=== PATIENT | female | born 1960 | race Caucasian/White ===

== ENCOUNTER 2017-01-25 06:43 | Day surgery (SDC) | payer BC ==
[2017-01-25] MEDS ORDERED: Sodium Chloride 0.9% 10 ML Syringe FLUSH PRN (06:45)
[2017-01-25] MEDS ORDERED: Lactated Ringers 1,000 ML IV SCH (06:45)
[2017-01-25] MEDS ORDERED: Propofol 200 MG/20 ML SDV IV ONE (08:00)
--- NOTE | 2017-01-25 08:20 | PCM.OPNOTE ---
- General Post-Op/Procedure Note Date of Surgery/Procedure: 01/25/17 Operative Procedure(s): c scope Findings: normal colonoscopy Pre Op Diagnosis: hx of colon polyps Post-Op Diagnosis: nl scope Anesthesia Technique: MAC Primary Surgeon: Sameer Conley Anesthesia Provider: Joaquín Glass Pathology: none Complications: None Condition: Good Free Text/Narrative:: see dictation
[2017-01-25 09:37] VITALS: BP 121/83
--- NOTE | 2017-01-25 12:27 | OR ---
DATE OF OPERATION: 01/25/2017 SURGEON: Sameer Conley MD PROCEDURE PERFORMED: Screening colonoscopy. PREOPERATIVE DIAGNOSIS: Personal history of colon polyps. POSTOPERATIVE DIAGNOSIS: Normal scope. INDICATIONS FOR PROCEDURE: This is a 56-year-old white female, who has a history of colon polyps on her previous endoscopy. She presents now for followup scope. DESCRIPTION OF PROCEDURE: After an excellent IV sedation was administered, digital rectal exam was performed. No marked abnormality was noted. The flexible colonoscope was inserted and advanced to the cecum without difficulty. The prep was excellent. The following findings were noted. Ascending colon, unremarkable. Transverse colon, unremarkable. Descending colon, unremarkable. Sigmoid and rectum unremarkable. Colon was deflated. Scope was removed. The patient tolerated the procedure well and was taken to recovery room in good condition. /[id number] /MAYEL
== END 2017-01-25 09:10 | disposition home or self-care (01) ==
LOC: FB.SDS 06:43
PROVIDERS: ATTEND Surgery
DX: Z12.11 Encounter for screening for malignant neoplasm of colon (principal); I73.00 Raynaud's syndrome without gangrene; I10 Essential (primary) hypertension; G43.909 Migraine, unspecified, not intractable, without status migrainosus; I05.9 Rheumatic mitral valve disease, unspecified; Z87.19 Personal history of other diseases of the digestive system; Z90.49 Acquired absence of other specified parts of digestive tract; Z98.890 Other specified postprocedural states; Z79.899 Other long term (current) drug therapy
CPT/HCPCS: 45378; J2704; J7120

== ENCOUNTER 2017-08-01 20:11 | Emergency (ER) | payer BC ==
[2017-08-01] MEDS ORDERED: Bupivacaine 0.5% 30 ML SDV INFILT ONE (20:12)
[2017-08-01] MEDS ORDERED: Diphtheria,Pertussis(Acell),Tetanus Vaccine 0.5 ML SDV IM ONE (20:18)
[2017-08-01] MEDS ORDERED: Amoxicillin/Clavulanate K 875-125 MG Tab PO ONE (20:51)
--- NOTE | 2017-08-01 20:51 | EDM.PDOC ---
ED HPI GENERAL MEDICAL PROBLEM - General Chief Complaint: Laceration Stated Complaint: POINTER LT FINGER LAC Time Seen by Provider: 08/01/17 20:11 Source of Information: Reports: Patient, Family History Limitations: Reports: No Limitations - History of Present Illness INITIAL COMMENTS - FREE TEXT/NARRATIVE: 57 y.o.w.sofia came to the ed with her SO after she cut herself with a kitchen knife into her left index finger by accident. There was mild bleeding, No loss of function with good bending, extension abduction and adduction. No other acute medical issues. BP 162/102 pulse 80 Temp 36.7 RR 19 Pulse ox 98% on RA Onset: Today Onset Date: 08/01/17 Onset Time: 20:00 Duration: Minutes:, Constant Location: Reports: Upper Extremity, Left Quality: Reports: Ache, Burning Severity: Mild Improves with: Reports: Rest Worsens with: Reports: Movement Context: Reports: Trauma (with kitchen knife) Associated Symptoms: Reports: No Other Symptoms - Related Data Allergies Allergy/AdvReac Type Severity Reaction Status Date / Time No Known Allergies Allergy Verified 08/01/17 20:35 Home Meds: Home Meds Lisinopril 20 mg PO DAILY 01/24/17 [History] PARoxetine [Paxil] 10 mg PO DAILY 01/24/17 [History] Amoxicillin/Potassium Clav [Augmentin 875-125 Tablet] 1 each PO BID #20 tablet 08/01/17 [Rx] Past Medical History HEENT History: Reports: None Cardiovascular History: Reports: Hypertension, Other (See Below) Other Cardiovascular History: MITRAL VALVE DISORDER, RAYNAUD'S SYNDROME Respiratory History: Reports: None Gastrointestinal History: Reports: Colon Polyp, Hemorrhoids Genitourinary History: Reports: Other (See Below) Other Genitourinary History: MENOPAUSAL X 2.5 YEARS HCC CODERS History: Reports: Musculoskeletal History: Reports: None Neurological History: Reports: Migraines Psychiatric History: Reports: Anxiety Endocrine/Metabolic History: Reports: None Hematologic History: Reports: None Oncologic (Cancer) History: Reports: None Dermatologic History: Reports: None - Past Surgical History Head Surgeries/Procedures: Reports: None HEENT Surgical History: Reports: Adenoidectomy, Tonsillectomy Cardiovascular Surgical History: Reports: None Respiratory Surgical History: Reports: None GI Surgical History: Reports: Appendectomy, Colonoscopy Female Surgical History: Reports: Section Endocrine Surgical History: Reports: None Neurological Surgical History: Reports: None Musculoskeletal Surgical History: Reports: None Oncologic Surgical History: Reports: None Social & Family History - Tobacco Use Smoking Status *Q: Never Smoker - Caffeine Use Caffeine Use: Reports: Soda - Alcohol Use Days Per Week of Alcohol Use: 3 Number of Drinks Per Day: 3 Total Drinks Per Week: 9 - Recreational Drug Use Recreational Drug Use: No - Living Situation & Occupation Living situation: Reports: ED ROS GENERAL - Review of Systems Review Of Systems: See Below Constitutional: Reports: No Symptoms HEENT: Reports: No Symptoms Respiratory: Reports: No Symptoms Cardiovascular: Reports: No Symptoms Endocrine: Reports: No Symptoms GI/Abdominal: Reports: No Symptoms : Reports: No Symptoms Musculoskeletal: Reports: No Symptoms Skin: Reports: Wound (left index finger) Neurological: Reports: No Symptoms Psychiatric: Reports: No Symptoms Hematologic/Lymphatic: Reports: No Symptoms Immunologic: Reports: No Symptoms ED EXAM, SKIN/RASH Exam: See Below Exam Limited By: No Limitations General Appearance: Alert, WD/WN, Mild Distress Eye Exam: Bilateral Eye: Normal Inspection Ears: Normal External Exam, Normal Canal Nose: Normal Inspection, Normal Mucosa Throat/Mouth: Normal Inspection, Normal Lips Head: Atraumatic, Normocephalic Neck: Normal Inspection, Supple, Non-Tender, Full Range of Motion Respiratory/Chest: No Respiratory Distress, Lungs Clear, Normal Breath Sounds, No Accessory Muscle Use, Chest Non-Tender Cardiovascular: Normal Peripheral Pulses, Regular Rate, Rhythm, No Edema, No Gallop, No JVD, No Murmur, No Rub Peripheral Pulses: 1+: Radial (L) GI/Abdominal: Normal Bowel Sounds, Soft (Female) Exam: Deferred Rectal (Female) Exam: Deferred Back Exam: Normal Inspection, Full Range of Motion Extremities: Normal Range of Motion, Non-Tender, No Pedal Edema, Normal Capillary Refill Neurological: Alert, Oriented, CN II-XII Intact, Normal Cognition, Normal Gait, No Motor/Sensory Deficits Psychiatric: Normal Affect, Normal Mood Skin: Warm, Dry, Wound/Incision (left index finger, volar aspect) Location, Skin: Upper Extremity, Left Associated features: Warmth, Tenderness Lymphatic: No Adenopathy ED SKIN PROCEDURES - Laceration/Wound Repair Left Finger Lac/Wound length In cm: 1 (indes finger volar aspect) Appearance: Subcutaneous, Clean Distal NVT: Neuro & Vascular Intact, No Tendon Injury Anesthetic Type: Local Local Anesthesia - Bupivicaine (Marcaine): 0.5% Plain Local Anesthetic Volume: 2cc Skin Prep: Providone-Iodine (Betadine) Saline Irrigation (cc's): 5 Exploration/Debridement/Repair: Wound Explored, In a Bloodless Field, Explored to Base Suture Type: Other (ethilone) Suture Size: 4-0 # of Sutures: 3 Drain Placement: No Sterile Dressing Applied: Nurse Tetanus Status Addressed: Yes (given on this visit) Complications: No Course - Vital Signs Text/Narrative:: 57 y.o.w.f came to the ed with her SO after she cut herself with a kitchen knife into her left index finger by accident. There was mild bleeding, No loss of function with good bending, extension abduction and adduction. No other acute medical issues. BP 162/102 pulse 80 Temp 36.7 RR 19 Pulse ox 98% on RA PE: WNWDWF with LAC left index finger. Procedure: Please see above. Impression: Laceration left index finger, repaired in the ED Tx: wound card, Abx, Tetanus immunization Reexam: Improved Plan: D/C with instructions Last Recorded V/S: Last Vital Signs Temp 36.6 C 08/01/17 20:15 Pulse 80 08/01/17 20:15 Resp 18 08/01/17 20:15 BP 162/102 H 08/01/17 20:15 Pulse Ox 100 08/01/17 20:15 - Orders/Labs/Meds Orders: Active Orders 24 hr Category Date Time Status Vaccines to be Administered [RC] PER UNIT ROUTINE Care 08/01/17 20:19 Active Meds: Medications Discontinued Medications Generic Name Dose Route Start Last Admin Trade Name Freq PRN Reason Stop Dose Admin Amoxicillin/Clavulanate Potassium 1 tab 08/01/17 20:51 08/01/17 20:55 Augmentin 875 Mg/125 Mg PO 08/01/17 20:52 1 tab ONETIME ONE Administration Bupivacaine HCl 2 ml 08/01/17 20:12 Marcaine 0.5% INFILT 08/01/17 20:13 .STK-MED ONE Diphtheria/Tetanus/Acell Pertussis 0.5 ml 08/01/17 20:18 03/01/18 20:38 Adacel IM 08/01/17 20:19 0.5 ml .ONCE ONE Administration Departure - Departure Time of Disposition: 20:51 Disposition: Home, Self-Care 01 Condition: Good Clinical Impression: Laceration - Discharge Information Prescriptions: Amoxicillin/Potassium Clav [Augmentin 875-125 Tablet] 1 each PO BID #20 tablet Instructions: Sutured Wound Care Referrals: Mariposa Bueno [employer] [employer]ADER [Primary Care Provider] - Forms: ED Department Discharge Additional Instructions: Please apply neosporine to wound twice daily, Augmentin as recommended, Motrin for pain, wound check in 2 days by your PMD, suture removal in 10 in 10 days. Please come back to the ed if your symptoms get worse acutely - My Orders Last 24 Hours: My Active Orders 08/01/17 20:19 Vaccines to be Administered [RC] PER UNIT ROUTINE - Assessment/Plan Last 24 Hours: My Active Orders 08/01/17 20:19 Vaccines to be Administered [RC] PER UNIT ROUTINE
[2017-08-01 21:37] VITALS: BP 162/102
== END 2017-08-01 21:00 | disposition home or self-care (01) ==
LOC: FB.ED 20:11
DX: S61.211A Laceration without foreign body of left index finger without damage to nail, initial encounter (principal); I10 Essential (primary) hypertension; F41.9 Anxiety disorder, unspecified; Z23 Encounter for immunization; W26.0XXA Contact with knife, initial encounter; Z79.899 Other long term (current) drug therapy
CPT/HCPCS: 12001; 90471; 90715; 99282; A9270

== ENCOUNTER 2021-01-10 07:32 | Day surgery (SDC) | payer BC ==
[~2021-01-10 07:32] MED LIST: Lactated Ringers 1,000 ML IV PRN; Sodium Chloride 0.9% 10 ML Syringe FLUSH PRN
[2021-01-10] MEDS ORDERED: Midazolam 1 MG/ML 2 ML SDV IV ONE (07:33)
[2021-01-10] MEDS ORDERED: fentaNYL 100 MCG/2 ML SDV IV ONE (07:33)
[2021-01-10] MEDS ORDERED: acetaZOLAMIDE 500 MG Cap.ER PO ONE (09:30)
[2021-01-10 11:38] VITALS: BP 124/85; PULSE 71
--- NOTE | 2021-01-10 13:23 | OR ---
DATE OF OPERATION: 01/10/2021 SURGEON: Zehra Flores MD PREOPERATIVE DIAGNOSIS: Visually significant cataract, right eye. POSTOPERATIVE DIAGNOSIS: Visually significant cataract, right eye. PROCEDURES PERFORMED: Phacoemulsification with intraocular lens placement, right eye. ASSISTANTS: None. ANESTHESIA: Local with sedation. COMPLICATIONS: None. BLOOD LOSS: None. IMPLANTS: Pre-loaded CHANTELLE DCB00 19.0 diopter lens implanted. CDE: 2.76. DESCRIPTION OF PROCEDURE: After risks and benefits were reviewed with the patient, consent was obtained in the preoperative area, and the operative eye was marked with a surgical pen. In the preoperative area, a pledget was used to dilate the pupil consisting of a mixture of phenylephrine 10%, cyclopentolate 2%, moxifloxacin 0.5%, and bupivacaine 0.75%. The patient was taken to the operating room, where a time-out was performed, and the patient was placed under monitored anesthesia care. Topical tetracaine was used for anesthesia. The operative eye was prepped and draped for ophthalmic surgery, and the microscope was brought into position and focused. A paracentesis incision was made, followed by injection of preservative-free 1% lidocaine into the anterior chamber, followed by injection of Viscoat into the anterior chamber. A microkeratome blade was used to make a corneal limbal incision temporally. A cystotome was used to make the beginning of the capsulorrhexis, which was carried around 360 degrees in a curvilinear fashion using Utrata forceps. A Leonard cannula with BSS was used to hydrodissect and hydrodelineate the nucleus. The nucleus was removed in a divide and conquer manner using phacoemulsification. Irrigation and aspiration were used to remove the remaining cortical material. Provisc was used to inflate the capsular bag, and a pre-loaded CHANTELLE DCB00 19.0 diopter lens, serial number [id number] was injected into the capsular bag. A Sinskey hook was used to position and center the lens. Next, irrigation and aspiration was used to remove any remaining viscoelastic and cortical material from the anterior chamber. BSS on a cannula was used to inflate the anterior chamber and hydrate the wound. The wound was checked and found to be watertight. 1 mg of Moxifloxacin was injected into the anterior chamber. Drapes were removed and the eye was cleaned. A drop of brimonidine 0.2% and a drop of TobraDex was placed. The eye was shielded, and the patient was taken to the recovery room in stable condition. /[id number] JOSE/JUANJOSE
== END 2021-01-10 09:40 | disposition home or self-care (01) ==
LOC: FB.SDS 07:32
PROVIDERS: ATTEND Ophthalmology
DX: H25.813 Combined forms of age-related cataract, bilateral (principal); H40.1420 Capsular glaucoma with pseudoexfoliation of lens, left eye, stage unspecified; H04.123 Dry eye syndrome of bilateral lacrimal glands; H50.52 Exophoria; H35.033 Hypertensive retinopathy, bilateral; H52.13 Myopia, bilateral; I73.00 Raynaud's syndrome without gangrene; I10 Essential (primary) hypertension; Z88.8 Allergy status to other drugs, medicaments and biological substances; S82.141D Displaced bicondylar fracture of right tibia, subsequent encounter for closed fracture with routine healing; X58.XXXD Exposure to other specified factors, subsequent encounter
CPT/HCPCS: 00142; 66984; A9270; J2250; J3010; V2632

== ENCOUNTER 2021-02-14 09:19 | Day surgery (SDC) | payer BC ==
[2021-02-14] MEDS ORDERED: Midazolam 1 MG/ML 2 ML SDV IV ONE (09:20)
[2021-02-14] MEDS ORDERED: fentaNYL 100 MCG/2 ML SDV IV ONE (09:20)
[2021-02-14] MEDS ORDERED: Lactated Ringers 1,000 ML IV PRN (09:30)
[2021-02-14] MEDS ORDERED: Sodium Chloride 0.9% 10 ML Syringe FLUSH PRN (09:30)
[2021-02-14] MEDS ORDERED: acetaZOLAMIDE 500 MG Cap.ER PO ONE (11:30)
[2021-02-14 12:03] VITALS: BP 129/83; PULSE 69
--- NOTE | 2021-02-15 08:28 | OR ---
DATE OF OPERATION: 02/14/2021 SURGEON: Zehra Flores MD PREOPERATIVE DIAGNOSIS: Visually significant cataract, left eye. POSTOPERATIVE DIAGNOSIS: Visually significant cataract, left eye. PROCEDURES PERFORMED: Phacoemulsification with intraocular lens placement, left eye. ASSISTANTS: None. ANESTHESIA: Local with sedation. COMPLICATIONS: None. BLOOD LOSS: None. IMPLANTS: A pre-loaded PCB00 20.0 diopter lens implanted. CDE: 0.98. DESCRIPTION OF PROCEDURE: After risks and benefits were reviewed with the patient, consent was obtained in the preoperative area, and the operative eye was marked with a surgical pen. In the preoperative area, a pledget was used to dilate the pupil consisting of a mixture of phenylephrine 10%, cyclopentolate 2%, moxifloxacin 0.5%, and bupivacaine 0.75%. The patient was taken to the operating room, where a time-out was performed, and the patient was placed under monitored anesthesia care. Topical tetracaine was used for anesthesia. The operative eye was prepped and draped for ophthalmic surgery, and the microscope was brought into position and focused. A paracentesis incision was made, followed by injection of preservative-free 1% lidocaine into the anterior chamber, followed by injection of Viscoat into the anterior chamber. A microkeratome blade was used to make a corneal limbal incision temporally. A cystotome was used to make the beginning of the capsulorrhexis, which was carried around 360 degrees in a curvilinear fashion using Utrata forceps. A Leonard cannula with BSS was used to hydrodissect and hydrodelineate the nucleus. The nucleus was removed in a divide and conquer manner using phacoemulsification. Irrigation and aspiration were used to remove the remaining cortical material. Provisc was used to inflate the capsular bag, and a pre-loaded PCB00 20.0 diopter lens, serial number [id number] was injected into the capsular bag. A Sinskey hook was used to position and center the lens. Next, irrigation and aspiration was used to remove any remaining viscoelastic and cortical material from the anterior chamber. BSS on a cannula was used to inflate the anterior chamber and hydrate the wound. The wound was checked and found to be watertight. 1 mg of Moxifloxacin was injected into the anterior chamber. Drapes were removed and the eye was cleaned. A drop of brimonidine 0.2% and a drop of TobraDex was placed. The eye was shielded, and the patient was taken to the recovery room in stable condition. /[id number] JOSE/JUANJOSE
== END 2021-02-14 11:45 | disposition home or self-care (01) ==
LOC: FB.SDS 09:19
PROVIDERS: ATTEND Ophthalmology
DX: H25.813 Combined forms of age-related cataract, bilateral (principal); H40.1420 Capsular glaucoma with pseudoexfoliation of lens, left eye, stage unspecified; H04.123 Dry eye syndrome of bilateral lacrimal glands; H50.52 Exophoria; H35.033 Hypertensive retinopathy, bilateral; H52.13 Myopia, bilateral; I73.00 Raynaud's syndrome without gangrene; I10 Essential (primary) hypertension; G43.909 Migraine, unspecified, not intractable, without status migrainosus; Z98.890 Other specified postprocedural states; Z79.899 Other long term (current) drug therapy; Z88.8 Allergy status to other drugs, medicaments and biological substances; Z90.49 Acquired absence of other specified parts of digestive tract
CPT/HCPCS: 00142-QZ; A9270-GY; J2250; J3010

== ENCOUNTER 2024-07-02 08:18 | Day surgery (SDC) | payer BC ==
[2024-07-02] MEDS ORDERED: Lidocaine 2% 100 MG/5 ML Syringe IVPUSH ONE (08:19)
[2024-07-02] MEDS ORDERED: Propofol 200 MG/20 ML SDV IV ONE (08:19)
[2024-07-02] MEDS ORDERED: Midazolam 1 MG/ML 2 ML SDV IV ONE (08:19)
[2024-07-02] MEDS ORDERED: Sodium Chloride 0.9% 10 ML Syringe FLUSH PRN (08:30)
[2024-07-02] MEDS: Lactated Ringers 1,000 ML IV SCH (09:42)
[2024-07-02 10:05] VITALS: BP 147/97; PULSE 83
[2024-07-02] MEDS: Simethicone Drops 40 MG/0.6 ML 30 ML Bottle ONE (10:39)
== END 2024-07-02 11:45 | disposition home or self-care (01) ==
LOC: FB.SDS 08:18
PROVIDERS: ATTEND Surgery
DX: Z12.11 Encounter for screening for malignant neoplasm of colon (principal); Z86.0101 Personal history of adenomatous and serrated colon polyps; I10 Essential (primary) hypertension; F41.9 Anxiety disorder, unspecified; Z79.899 Other long term (current) drug therapy; Z88.8 Allergy status to other drugs, medicaments and biological substances
CPT/HCPCS: 00812; A9270-GY; J2250; J2704; J7120